=== PATIENT | male | born 1980 | race Caucasian/White ===

== ENCOUNTER → 2016-11-11 | Outpatient (CLI) | payer OTHER ==
--- NOTE | 2016-11-11 16:56 | KCIC ---
PROCEDURE MRI of the cervical spine without contrast 11/11/2016 HISTORY Neck pain for the last 3 weeks which radiates down the right shoulder. TECHNIQUE Unenhanced T1 weighted, T2 weighted and inversion recovery sagittal and gradient echo and T2 weighted axial images of the cervical spine were obtained. FINDINGS Minimal lateral curvature of the cervical spine is seen convex to the left. There is mild straightening of the normal cervical lordosis. Degenerative signal changes are seen involving the C4-5 and C6-7 discs. Degenerative signal changes are seen within the marrow surrounding these discs. The cervical spinal cord is normal in morphology, position, and signal characteristics. At the C2-3 disc space there is a mild generalized disc bulge. Degenerative changes are seen involving uncovertebral and facet joints, right greater than left. These findings do not result in significant central spinal canal stenosis. Mild to moderate right neural foraminal stenosis is seen. The left neural foramina is patent. At the C3-4 disc space there is a mild generalized disc bulge. Superimposed on this disc bulge is a left paracentral focal disc protrusion. This measures 2 millimeters in AP diameter. Degenerative changes are seen involving the uncovertebral and facet joints bilaterally. These findings do not result in significant central spinal canal or neural foraminal stenosis. At the C4-5 disc space there is a mild generalized disc bulge. Superimposed on this disc bulge is a left paracentral focal disc protrusion. This measures 3 millimeters in AP diameter. Degenerative changes are seen involving the uncovertebral and facet joints, right greater than left. These findings do not result in significant central spinal canal or neural foraminal stenosis. At the C5-6 disc space there is a mild generalized disc bulge. Degenerative changes are seen involving uncovertebral and facet joints, left greater than right. These findings when combined do not result in significant central spinal canal stenosis. Mild to moderate left neural foraminal stenosis is seen. The right neural foramina is patent. At the C6-7 disc space there is a mild generalized disc bulge. Degenerative changes are seen involving the uncovertebral and facet joints bilaterally. These findings do not result in significant central spinal canal or neural foraminal stenosis. The C7-T1 disc space there is a mild generalized disc bulge. Degenerative changes are seen involving the facet joints bilaterally. These findings do not result in significant central spinal canal or neural foraminal stenosis. IMPRESSION Degenerative changes are seen throughout the cervical spine. These findings do not result in significant central spinal canal stenosis at any level. Mild to moderate right neural foraminal stenosis is seen at C2-3. Mild to moderate left neural foraminal stenosis is seen at C5-6. Electronically signed by: Chacho Manzo MD (November 11, 2016 16:54:41)
== END | disposition home or self-care (01) ==
LOC: KCIC MRI 13:40
PROVIDERS: ATTEND Family Medicine
DX: M50.30 Other cervical disc degeneration, unspecified cervical region (principal); M48.02 Spinal stenosis, cervical region
CPT/HCPCS: 72141